=== PATIENT | female | born 1980 | race Caucasian/White ===

== ENCOUNTER → 2017-08-28 06:51 | Emergency (ER) | payer SELFPAY ==
[~2017-08-28 06:51] MED LIST: Ciprofloxacin 0.3% OPTH.SOL* 2.5 ML BTL RIGHT EYE ONE
[2017-08-28 07:08] VITALS: BP 186/88
--- NOTE | 2017-09-03 13:12 | ED ---
Celso Foreman Angela, scribed for Levi Coon MD on 08/28/17 at 0734 . Throat Pain/Nasal Congestion - HPI Summary HPI Summary: This pt is a 36 y/o female presenting [place] [facility] [place]/o right eye redness. 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 Pt states that she feels her right eye irritated. Pt denies fever, chills, right eye pain. Pt states she has a history of allergies and it sometimes presents with involvement of the eyes. PMHx includes HTN. - History of Current Complaint Chief Complaint: EDEyeProblem Time Seen by Provider: 08/28/17 07:28 Hx Obtained From: Patient Onset/Duration: Lasting Hours, Still Present Severity: Moderate Associated Signs And Symptoms: Negative: FB Sensation Cough: None - Allergies/Home Medications Allergies/Adverse Reactions: Allergies Allergy/AdvReac Type Severity Reaction Status Date / Time ENVIRONMENTAL Allergy Intermediate Eyes Uncoded 03/04/15 13:42 Itchy/Swollen/Red/Watery PMH/Surg Hx/FS Hx/Imm Hx Endocrine/Hematology History: Denies: Hx Diabetes, Hx Thyroid Disease Cardiovascular History: Reports: Hx Hypertension - POSSIBLY Respiratory History: Reports: Hx Asthma - ALLERGY Denies: Hx Chronic Obstructive Pulmonary Disease (COPD) GI History: Denies: Hx Ulcer - Surgical History Surgery Procedure, Year, and Place: LEFT KNEE-2013, RIGHT ANKLE Infectious Disease History: No Infectious Disease History: Denies: Hx Clostridium Difficile, Hx Hepatitis, Hx Human Immunodeficiency Virus (HIV), Hx of Known/Suspected MRSA, Hx Shingles, Hx Tuberculosis, Hx Known/ Suspected VRE, Hx Known/Suspected VRSA, History Other Infectious Disease, Traveled Outside the [place] in Last 30 Days - Family History Known Family History: Positive: Hypertension - Social History Alcohol Use: None Substance Use Type: Reports: None Smoking Status (MU): Former Smoker Review of Systems Negative: Fever, Chills Positive: Erythema - right eye. Negative: Other - eye pain Gastrointestinal: Negative Genitourinary: Negative Musculoskeletal: Negative Skin: Negative Neurological: Negative All Other Systems Reviewed And Are Negative: Yes Physical Exam - Summary Physical Exam Summary: VITAL SIGNS: Reviewed. GENERAL: Patient is a well-developed and nourished female who is lying comfortable in the stretcher. Patient is not in any acute respiratory distress. HEAD AND FACE: No signs of trauma. No ecchymosis, hematomas or skull depressions. No sinus tenderness. EYES: PERRLA, EOMI x 2, no nystagmus. Right eye: there is positive erythema and positive conjunctival injection. EARS: Hearing grossly intact. Ear canals and tympanic membranes are within normal limits. MOUTH: Oropharynx within normal limits. NECK: Supple, trachea is midline, no adenopathy, no JVD, no carotid bruit, no c- spine tenderness, neck with full ROM. CHEST: Symmetric, no tenderness at palpation LUNGS: Clear to auscultation bilaterally. No wheezing or crackles. CVS: Regular rate and rhythm, S1 and S2 present, no murmurs or gallops appreciated. ABDOMEN: Soft, non-tender. No signs of distention. No rebound no guarding, and no masses palpated. Bowel sounds are normal. EXTREMITIES: FROM in all major joints, no edema, no cyanosis or clubbing. NEURO: Alert and oriented x 3. No acute neurological deficits. Speech is normal and follows commands. SKIN: Dry and warm Triage Information Reviewed: Yes Vital Signs On Initial Exam: Initial Vitals Temp Pulse Resp BP Pulse Ox 98.2 F 73 20 186/88 96 08/28/17 07:05 08/28/17 07:05 08/28/17 07:05 08/28/17 07:05 08/28/17 07:05 Vital Signs Reviewed: Yes - [place] Coma Scale Coma Scale Total: 15 Diagnostics - Vital Signs Vital Signs Temp Pulse Resp BP Pulse Ox 08/28/17 07:05 98.2 F 73 20 186/88 96 - Laboratory Lab Statement: Any lab studies that have been ordered have been reviewed, and results considered in the medical decision making process. EENT Course/Dx - Course Assessment/Plan: This pt is a 36 y/o female presenting to [facility] [place]/o right eye redness. 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 Pt states that she feels her right eye irritated. Pt denies fever, chills, right eye pain or discharge. Pt states she has a history of allergies and it sometimes presents with involvement of the eyes. PMHx includes HTN. The pt has injected conjunctivae, secondary to viral conjunctivitis since the pt has dry secretion in the eye lids. Pt was given ciprofloxacin ophthalmic solutions and was discharged with follow up from her PCP. Pt is hemodynamically stable, alert and oriented x3. - Diagnoses Provider Diagnoses: Conjunctivitis Discharge - Discharge Plan Condition: Stable Disposition: HOME Patient Education Materials: Conjunctivitis (ED) Forms: *Work Release Referrals: [facility] [Outside] No Primary Care Phys,NOPCP [Primary Care Provider] - Additional Instructions: Do warm compresses. Please follow up with your primary care provider. RETURN TO THE ED FOR ANY WORSENING SYMPTOMS. The documentation as recorded by the Celso short Angela accurately reflects the service I personally performed and the decisions made by , Levi Coon MD.
== END | disposition home or self-care (01) ==
LOC: ED 06:51
DX: H10.9 Unspecified conjunctivitis (principal); I10 Essential (primary) hypertension; Z87.891 Personal history of nicotine dependence; J45.909 Unspecified asthma, uncomplicated
CPT/HCPCS: 99281; A9270-GY

== ENCOUNTER 2017-11-18 04:38 | Emergency (ER) | payer BC ==
[2017-11-18] MEDS ORDERED: Ibuprofen TAB* 800 MG PO ONE (05:11)
[2017-11-18 06:31] LABS: Urine Appearance Cloudy; Urine Blood 2+ (Negative); Urine Color Yellow; Urine Ketones Negative (Negative); Urine Protein Negative (Negative); Urine Specific Gravity 1.005 (1.010-1.030); Urine Urobilinogen Negative (Negative)
--- NOTE | 2017-11-18 06:54 | ED ---
Boston Foreman Gabriel, scribjon for Maricel Solomon MD on 11/18/17 at 0508 . Influenza-Like Illness - HPI Summary HPI Summary: This patient is a 37 year old F presenting to [facility] with a chief complaint of flu like illness that began two days ago. The patient rates the pain 4/10 in severity. Patient reports weakness, nausea, chills, and myalgia. Patient denies vomiting and diarrhea. No hx of HTN. - History of Current Complaint Chief Complaint: EDFluSymptoms Time Seen by Provider: 11/18/17 05:00 Hx Obtained From: Patient Onset/Duration: Lasting Days - 2, Still Present Severity: Mild Associated Signs & Symptoms: Myalgia - Allergy/Home Medications Allergies/Adverse Reactions: Allergies Allergy/AdvReac Type Severity Reaction Status Date / Time ENVIRONMENTAL Allergy Intermediate Eyes Uncoded 11/18/17 04:49 Itchy/Swollen/Red/Watery PMH/Surg Hx/FS Hx/Imm Hx Endocrine/Hematology History: Denies: Hx Diabetes, Hx Thyroid Disease Cardiovascular History: Reports: Hx Hypertension - POSSIBLY Respiratory History: Reports: Hx Asthma - ALLERGY Denies: Hx Chronic Obstructive Pulmonary Disease (COPD) GI History: Denies: Hx Ulcer - Surgical History Surgery Procedure, Year, and Place: LEFT KNEE-2013, RIGHT ANKLE Infectious Disease History: No Infectious Disease History: Denies: Hx Clostridium Difficile, Hx Hepatitis, Hx Human Immunodeficiency Virus (HIV), Hx of Known/Suspected MRSA, Hx Shingles, Hx Tuberculosis, Hx Known/ Suspected VRE, Hx Known/Suspected VRSA, History Other Infectious Disease, Traveled Outside the [place] in Last 30 Days - Family History Known Family History: Positive: Hypertension - Social History Alcohol Use: None Substance Use Type: Reports: None Smoking Status (MU): Former Smoker Review of Systems Positive: Chills Positive: Nausea. Negative: Vomiting, Diarrhea Positive: Myalgia Positive: Weakness All Other Systems Reviewed And Are Negative: Yes Physical Exam - Summary Physical Exam Summary: VITAL SIGNS: Reviewed. GENERAL: Patient is a well-developed and morbidly obese female who is lying comfortable in the stretcher. Patient is not in any acute respiratory distress. HEAD AND FACE: No signs of trauma. No ecchymosis, hematomas or skull depressions. No sinus tenderness. EYES: PERRLA, EOMI x 2, No injected conjunctiva, no nystagmus. EARS: Hearing grossly intact. Ear canals and tympanic membranes are within normal limits. MOUTH: Oropharynx within normal limits. NECK: Supple, trachea is midline, no adenopathy, no JVD, no carotid bruit, no c- spine tenderness, neck with full ROM. CHEST: Symmetric, no tenderness at palpation LUNGS: Clear to auscultation bilaterally. No wheezing or crackles. CVS: Regular rate and rhythm, S1 and S2 present, no murmurs or gallops appreciated. ABDOMEN: Soft, non-tender. No signs of distention. No rebound no guarding, and no masses palpated. Bowel sounds are normal. EXTREMITIES: FROM in all major joints, no edema, no cyanosis or clubbing. NEURO: Alert and oriented x 3. No acute neurological deficits. Speech is normal and follows commands. SKIN: Dry and warm Triage Information Reviewed: Yes Vital Signs On Initial Exam: Initial Vitals Temp Pulse Resp BP Pulse Ox 98.0 F 86 18 228/102 96 11/18/17 04:45 11/18/17 04:45 11/18/17 04:45 11/18/17 04:45 11/18/17 04:45 Vital Signs Reviewed: Yes Diagnostics - Vital Signs Vital Signs Temp Pulse Resp BP Pulse Ox 11/18/17 04:45 98.0 F 86 18 228/102 96 - Laboratory Lab Statement: Any lab studies that have been ordered have been reviewed, and results considered in the medical decision making process. Re-Evaluation - Re-Evaluation First Eval Re-Evaluation Time: 06:46 Change: Improved - Patients BP is 170/90 she denies CRISTINA, numbness, tingling, and vision changes. She most likely has a viral syndrome Flu Symptom Course/Dx - Course Assessment/Plan: This patient is a 37 year old F presenting to [facility] with a chief complaint of flu like illness that began two days ago. The patient rates the pain 4/10 in severity. Patient reports weakness, nausea, chills, and myalgia. Patient denies vomiting and diarrhea. No hx of HTN. Test results with no significant abnormalities except. In the ED course the patient was given motrin. Dx viral illness, generalized weakness, possible hypertension. Patient will be discharged and follow up from PCP for blood pressure consultation. The patient is agreeable with this plan. - Diagnoses Provider Diagnoses: Viral illness, possible hypertension , General weakness Discharge - Discharge Plan Condition: Stable Disposition: HOME Referrals: No Primary Care Phys,NOPCP [Primary Care Provider] - [facility] [place]] - 2 Days Additional Instructions: RETURN TO EMERGENCY DEPARTMENT FOR ANY NEW OR WORSENING SYMPTOMS The documentation as recorded by the [place] short Gabriel accurately reflects the service I personally performed and the decisions made by me, Maricel Solomon MD.
[2017-11-18 07:00] VITALS: BP 144/79
== END 2017-11-18 06:58 | disposition home or self-care (01) ==
LOC: ED 04:38
DX: B34.9 Viral infection, unspecified (principal); R53.1 Weakness; Z87.891 Personal history of nicotine dependence
CPT/HCPCS: 81003; 81015; 87502; 99282; A9270-GY

== ENCOUNTER 2017-12-01 05:23 | Emergency (ER) | payer BC ==
[2017-12-01] MEDS ORDERED: Naproxen TAB* 250 MG PO ONE (05:56)
[2017-12-01 06:16] LABS: Urine Appearance Clear; Urine Blood Negative (Negative); Urine Color Straw; Urine Ketones Negative (Negative); Urine Protein Negative (Negative); Urine Specific Gravity 1.003 (1.010-1.030); Urine Urobilinogen Negative (Negative)
[2017-12-01 06:47] VITALS: BP 136/76
--- NOTE | 2017-12-01 06:47 | ED ---
Rolf Foreman Julia, scribed for Joseph King MD on 12/01/17 at 0550 . Abdominal Pain/Female - HPI Summary HPI Summary: This patient is a 37 year old F presenting to [facility] with a chief complaint of gradually worsening L flank pain for the past week. Patient denies pain radiating down her legs. The patient rates the pain 4/10 in severity. Symptoms aggravated by movement. - History of Current Complaint Chief Complaint: EDFlankPain Stated Complaint: LOWER BACK PAIN Time Seen by Provider: 12/01/17 05:40 Hx Obtained From: Patient Hx Last Menstrual Period: LAST WEEK Onset/Duration: Lasting Weeks, Worse Since - gradual Timing: Constant Pain Intensity: 5 Pain Scale Used: 0-10 Numeric Location: Flank - L Aggravating Factor(s): Movement Allergies/Adverse Reactions: Allergies Allergy/AdvReac Type Severity Reaction Status Date / Time ENVIRONMENTAL Allergy Intermediate Eyes Uncoded 11/18/17 04:49 Itchy/Swollen/Red/Watery PMH/Surg Hx/FS Hx/Imm Hx Endocrine/Hematology History: Denies: Hx Diabetes, Hx Thyroid Disease Cardiovascular History: Reports: Hx Hypertension - POSSIBLY Respiratory History: Reports: Hx Asthma - ALLERGY Denies: Hx Chronic Obstructive Pulmonary Disease (COPD) GI History: Denies: Hx Ulcer - Surgical History Surgery Procedure, Year, and Place: LEFT KNEE-2013, RIGHT ANKLE Infectious Disease History: No Infectious Disease History: Denies: Hx Clostridium Difficile, Hx Hepatitis, Hx Human Immunodeficiency Virus (HIV), Hx of Known/Suspected MRSA, Hx Shingles, Hx Tuberculosis, Hx Known/ Suspected VRE, Hx Known/Suspected VRSA, History Other Infectious Disease, Traveled Outside the [place] in Last 30 Days - Family History Known Family History: Positive: Hypertension, Other - kidney stones - Social History Alcohol Use: None Substance Use Type: Reports: None Smoking Status (MU): Former Smoker Review of Systems Positive: Abdominal Pain - L flank Negative: Myalgia - in legs All Other Systems Reviewed And Are Negative: Yes Physical Exam - Summary Physical Exam Summary: Appearance: Well appearing, no pain distress, moves freely without discomfort Skin: warm, dry, reflects adequate perfusion Head/face: normal Eyes: EOMI, DELL ENT: normal Neck: supple, non-tender Respiratory: CTA, breath sounds present Cardiovascular: RRR, pulses symmetrical Abdomen: non-tender, soft, very obese Bowel: present Musculoskeletal: normal, strength/ROM intact, extreme low left lumbar tenderness with palpation, brace on L knee Neuro: normal, sensory motor intact, A&Ox3 Triage Information Reviewed: Yes Vital Signs On Initial Exam: Initial Vitals Temp Pulse Resp BP Pulse Ox 97.5 F 88 18 207/108 97 12/01/17 05:26 12/01/17 05:26 12/01/17 05:26 12/01/17 05:26 12/01/17 05:26 Vital Signs Reviewed: Yes Diagnostics - Vital Signs Vital Signs Temp Pulse Resp BP Pulse Ox 12/01/17 05:26 97.5 F 88 18 207/108 97 - Laboratory Lab Results: Lab Results 12/01/17 Range/Units 06:00 Urine Color Straw Urine Appearance Clear Urine pH 6.0 (5-9) Ur Specific [place] 1.003 L (1.010-1.030) Urine Protein Negative (Negative) Urine Ketones Negative (Negative) Urine Blood Negative (Negative) Urine Nitrate Negative (Negative) Urine Bilirubin Negative (Negative) Urine Urobilinogen Negative (Negative) Ur Leukocyte Esterase Negative (Negative) Urine Glucose Negative (Negative) Lab Statement: Any lab studies that have been ordered have been reviewed, and results considered in the medical decision making process. - Additional Comments Diagnostic Additional Comments: Bedside US is negative for hydronephrosis. Abdominal Pain Fem Course/Dx - Course Course Of Treatment: pt with L low lumbar discomfort without disc sx. No evidence for stone. Urine neg. Tx symptomatically. May be due to altered gait due to braced L knee. - Diagnoses Differential Diagnosis: Positive: Renal Colic, Urinary Tract Infection, Other - back pain Provider Diagnoses: left lumbar strain Discharge - Discharge Plan Condition: Good Disposition: HOME Prescriptions: Cyclobenzaprine TAB* [Flexeril 10 MG TAB*] 5 - 10 mg PO TID PRN #15 tab PRN Reason: back pain Naproxen [Naproxen 500 mg] 500 mg PO BID PRN #10 tablet PRN Reason: back pain Patient Education Materials: Low Back Strain (ED) Forms: *Work Release Referrals: No Primary Care Phys,NOPCP [Primary Care Provider] - Additional Instructions: Call your family medicine office in [place] for a follow up appt today. transitions rn care coordinator or medical massage may help. Limit lifting for the next several days. Ice, range of motion/stretching exercises may help. Return with fever, increased pain, difficulty with bowel or bladder, worse or other concerns. The documentation as recorded by the Rolf short Julia accurately reflects the service I personally performed and the decisions made by me, Joseph King MD.
== END 2017-12-01 06:46 | disposition home or self-care (01) ==
LOC: ED 05:23
DX: Z87.891 Personal history of nicotine dependence (principal); S39.012A Strain of muscle, fascia and tendon of lower back, initial encounter; X58.XXXA Exposure to other specified factors, initial encounter; Y92.9 Unspecified place or not applicable
CPT/HCPCS: 81003; 99282; A9270-GY

== ENCOUNTER 2017-12-03 02:57 | Emergency (ER) | payer BC ==
[2017-12-03 05:47] VITALS: BP 172/98
--- NOTE | 2017-12-03 06:15 | ED ---
Monalisa Foreman Nilda, scribed for Joseph King MD on 12/03/17 at 0450 . Back Pain - HPI Summary HPI Summary: This patient is a 37 year old F presenting to [facility] with a chief complaint of constant left lower back pain for the past 3 days. Patient visited [facility] for same symptoms and was tested for kidney stones (negative) and was D/C with a muscle relaxer. Symptoms have not resolved. The patient rates the pain 7/10 in severity. Symptoms aggravated by movement and alleviated by nothing. - History of Current Complaint Chief Complaint: EDBackInjuryPain Stated Complaint: BACK PAIN Time Seen by Provider: 12/03/17 03:44 Hx Obtained From: Patient Hx Last Menstrual Period: LAST WEEK Onset/Duration: Sudden Onset, Lasting Days, Still Present Onset/Duration: Started Days Ago, Atraumatic, Still Present Timing: Constant Back Pain Location: Is Discrete @ - left lower back Severity Currently: Severe Pain Intensity: 7 Pain Scale Used: 0-10 Numeric Aggravating Symptom(s): Movement Alleviating Symptom(s): Nothing - Allergies/Home Medications Allergies/Adverse Reactions: Allergies Allergy/AdvReac Type Severity Reaction Status Date / Time ENVIRONMENTAL Allergy Intermediate Eyes Uncoded 12/03/17 03:07 Itchy/Swollen/Red/Watery PMH/Surg Hx/FS Hx/Imm Hx Endocrine/Hematology History: Denies: Hx Diabetes, Hx Thyroid Disease Cardiovascular History: Reports: Hx Hypertension - POSSIBLY Respiratory History: Reports: Hx Asthma - ALLERGY Denies: Hx Chronic Obstructive Pulmonary Disease (COPD) GI History: Denies: Hx Ulcer - Surgical History Surgery Procedure, Year, and Place: LEFT KNEE-2013, RIGHT ANKLE Infectious Disease History: No Infectious Disease History: Denies: Hx Clostridium Difficile, Hx Hepatitis, Hx Human Immunodeficiency Virus (HIV), Hx of Known/Suspected MRSA, Hx Shingles, Hx Tuberculosis, Hx Known/ Suspected VRE, Hx Known/Suspected VRSA, History Other Infectious Disease, Traveled Outside the [place] in Last 30 Days - Family History Known Family History: Positive: Hypertension, Other - kidney stones - Social History Alcohol Use: None Substance Use Type: Reports: None Smoking Status (MU): Former Smoker Review of Systems Negative: Shortness Of Breath Positive: Other - left lower back pain All Other Systems Reviewed And Are Negative: Yes Physical Exam - Summary Physical Exam Summary: Appearance: Morbidly obese, no pain distress Skin: warm, dry, reflects adequate perfusion Head/face: normal Eyes: EOMI, DELL ENT: normal, throat clear, nose normal Neck: supple, non-tender Respiratory: CTA, breath sounds present Cardiovascular: RRR, pulses symmetrical, no reproducible pain Abdomen: non-tender, soft Bowel sounds: present Back: very low left lumbar muscular tenderness, Brace on left knee due to right knee injury Musculoskeletal: normal, strength/ROM intact Neuro: normal, sensory motor intact, A&Ox3 Triage Information Reviewed: Yes Vital Signs On Initial Exam: Initial Vitals Temp Pulse Resp BP Pulse Ox 97.5 F 76 16 186/117 98 12/03/17 02:59 12/03/17 02:59 12/03/17 02:59 12/03/17 02:59 12/03/17 02:59 Vital Signs Reviewed: Yes Procedures - Procedure Summary Procedure Summary: Trigger point injection. Indication is low back pain. Pt placed supine and the left lumbar musculature was cleaned with ETOH. It was inject with total 15 CCs of 0.5% Marcaine, in divided aliquots. Medication was massaged into tissues. Pt tolerated the procedure well. Pain relief was modest. Diagnostics - Vital Signs Vital Signs Temp Pulse Resp BP Pulse Ox 12/03/17 02:59 97.5 F 76 16 186/117 98 - Laboratory Lab Statement: Any lab studies that have been ordered have been reviewed, and results considered in the medical decision making process. - Radiology Lumbar spine XR Radiology Interpretation Completed By: ED Physician - Lumbar spine XR reveals no acute findings. Re-Evaluation - Re-Evaluation First Eval Re-Evaluation Time: 04:30 Change: Improved Comment: Minimal benefit from injection. Back Pain Course/Dx - Course Assessment/Plan: Lumbar spine XR reveals no acute findings. Trigger point injection. Indication is low back pain. Pt placed supine and the left lumbar musculature was cleaned with ETOH. It was inject with total 15 CCs of 0.5% Marcaine, in divided aliquots. Medication was massaged into tissues. Pt tolerated the procedure well. Pain relief was modest. - Diagnoses Differential Diagnosis/HQI/PQRI: Positive: Fracture, Strain, Sprain Provider Diagnoses: Lumbar strain Discharge - Discharge Plan Condition: Good Disposition: HOME Prescriptions: HYDROcodone/ACETAMIN 5-325 MG* [[place] 5-325 TAB*] 1 tab PO Q8H PRN #6 tab MDD 3 PRN Reason: Pain Patient Education Materials: Low Back Strain (ED) Forms: *Work Release Referrals: [facility] [place] [facility] [Outside] Additional Instructions: ice, range of motion/stretching, pet care technician. Return if worse, new symptoms or other concerns. The documentation as recorded by the Monalisa short Nilda accurately reflects the service I personally performed and the decisions made by me, Joseph King MD.
--- NOTE | 2017-12-03 08:09 | RAD ---
INDICATION: Left lumbar pain since November 25, 2017 COMPARISON: None. TECHNIQUE: 3 views of the lumbar spine were obtained. FINDINGS: The vertebra are in normal alignment. No fracture is seen. Disc spaces appear maintained. IMPRESSION: No evidence of fracture or subluxation.
== END 2017-12-03 05:46 | disposition home or self-care (01) ==
LOC: ED 02:57
DX: S39.012A Strain of muscle, fascia and tendon of lower back, initial encounter (principal); X58.XXXA Exposure to other specified factors, initial encounter; Y92.9 Unspecified place or not applicable; Z87.891 Personal history of nicotine dependence
CPT/HCPCS: 72100; 99282

== ENCOUNTER 2018-09-17 06:22 | Emergency (ER) | payer BC ==
--- NOTE | 2018-09-17 06:38 | ED ---
Respiratory - HPI Summary HPI Summary: 37-year-old female presents with acute on chronic cough for the past 2 days. States it is sometimes productive. She admits to occasional shortness breath with cough. She is using a bunch cough drops with some relief. She has history of Allergy-induced asthma. States that her work is very joyce. She is currently on Singulair Flonase inhaler. She denies any fevers. She was occasional chills. No chest pain. No abdominal pain. No nausea or vomiting. She admits to sinus congestion and occasional sore throat from coughing. was a previous smoker. - History of Current Complaint Chief Complaint: EDUpperRespComplaint Stated Complaint: COUGH Time Seen by Provider: 09/17/18 06:31 Pain Intensity: 0 - Allergy/Home Medications Allergies/Adverse Reactions: Allergies Allergy/AdvReac Type Severity Reaction Status Date / Time ENVIRONMENTAL Allergy Intermediate Eyes Uncoded 09/17/18 06:25 Itchy/Swollen/Red/Watery PMH/Surg Hx/FS Hx/Imm Hx Endocrine/Hematology History: Denies: Hx Diabetes, Hx Thyroid Disease Cardiovascular History: Reports: Hx Hypertension - POSSIBLY Respiratory History: Reports: Hx Asthma - ALLERGY Denies: Hx Chronic Obstructive Pulmonary Disease (COPD) GI History: Denies: Hx Ulcer - Surgical History Surgery Procedure, Year, and Place: LEFT KNEE-2014, RIGHT ANKLE Infectious Disease History: No Infectious Disease History: Denies: Hx Clostridium Difficile, Hx Hepatitis, Hx Human Immunodeficiency Virus (HIV), Hx of Known/Suspected MRSA, Hx Shingles, Hx Tuberculosis, Hx Known/ Suspected VRE, Hx Known/Suspected VRSA, History Other Infectious Disease, Traveled Outside the [place] in Last 30 Days - Family History Known Family History: Positive: Hypertension, Other - kidney stones - Social History Alcohol Use: None Substance Use Type: Reports: None Smoking Status (MU): Former Smoker Review of Systems Negative: Fever Negative: Chest Pain Positive: Shortness Of Breath, Cough Negative: Abdominal Pain All Other Systems Reviewed And Are Negative: Yes Physical Exam Triage Information Reviewed: Yes Vital Signs On Initial Exam: Initial Vitals Temp Pulse Resp BP Pulse Ox 97.3 F 96 20 165/91 97 09/17/18 06:23 12 06:23 09/17/18 06:23 09/17/18 06:23 12/06/18 06:23 Vital Signs Reviewed: Yes Appearance: Positive: Well-Appearing Skin: Positive: Warm, Dry Head/Face: Positive: Normal Head/Face Inspection Eyes: Positive: Normal, EOMI, DELL, Conjunctiva Clear ENT: Positive: Normal ENT inspection, Nasal congestion, TMs normal Neck: Positive: Supple, Nontender, No Lymphadenopathy Respiratory/Lung Sounds: Positive: Clear to Auscultation, Breath Sounds Present Cardiovascular: Positive: Normal, RRR Abdomen Description: Positive: Nontender, Soft Bowel Sounds: Positive: Present Musculoskeletal: Positive: Normal Neurological: Positive: Normal Psychiatric: Positive: Normal Diagnostics - Vital Signs Vital Signs Temp Pulse Resp BP Pulse Ox 09/17/18 06:23 97.3 F 96 20 165/91 97 - Laboratory Lab Statement: Any lab studies that have been ordered have been reviewed, and results considered in the medical decision making process. - Radiology chest Radiology Interpretation Completed By: ED Physician Summary of Radiographic Findings: nad Disposition - Course Course Of Treatment: 37-year-old female presents with acute on chronic cough for the past 2 days. States it is sometimes productive. She admits to occasional shortness breath with cough. She is using a bunch cough drops with some relief. She has history of Allergy-induced asthma. States that her work is very joyce. She is currently on Singulair Flonase inhaler. She denies any fevers. She was occasional chills. No chest pain. No abdominal pain. No nausea or vomiting. She admits to sinus congestion and occasional sore throat from coughing. was a previous smoker. On exam lungs clear to auscultation. Nasal congestion present. Pharynx normal. Chest x-ray normal. Will give the Tessalon and prednisone for the cough. Patient understands agrees with plan. - Differential Dx - Cardiopulmonary Differential Diagnoses - Cardiopulmonary: Asthma, Bronchitis, Lower Resp Infection - Diagnoses Provider Diagnoses: Cough Discharge - Sign-Out/Discharge Documenting (check all that apply): Patient Departure - Discharge Plan Condition: Good Disposition: HOME Prescriptions: Benzonatate CAP* [Tessalon 100 MG CAP*] 100 mg PO TID #21 cap predniSONE TAB* [Deltasone TAB*] 50 mg PO DAILY #4 tab Patient Education Materials: Acute Cough (ED) Referrals: [facility] [place] [facility] [Outside] Additional Instructions: Use Tessalon three times a day for cough Use inhaler one puff every 4-6 hours for cough as needed Take steroid once a day for 5 days establish care with primary Return to ED if develop any new or worsening symptoms - Billing Disposition and Condition Condition: GOOD Disposition: Home
[2018-09-17 06:59] VITALS: BP 124/90
[2018-09-17] MEDS ORDERED: predniSONE TAB* 20 MG PO ONE (07:01)
[2018-09-17] MEDS ORDERED: Benzonatate CAP* 100 MG PO ONE (07:02)
== END 2018-09-17 07:12 | disposition home or self-care (01) ==
LOC: ED 06:22
DX: R05 Cough (principal); Z87.891 Personal history of nicotine dependence
CPT/HCPCS: 71046; 99282; A9270-GY; J7512